=== PATIENT | male | born 1965 | race Caucasian/White ===

== ENCOUNTER 2016-12-06 13:16 | Outpatient (CLI) | payer BC ==
--- NOTE | 2016-12-06 15:10 | XRAY Report ---
THREE-VIEW LUMBAR SPINE: 12/06/2016 CLINICAL INDICATION: Back pain. FINDINGS: AP, lateral, coned-down views of the lumbar spine demonstrate mild degenerative disk and f acet disease. There is no evidence of compression fracture or subluxation. The bowel gas pattern is normal. IMPRESSION: MILD DEGENERATIVE CHANGES. JOB #: [id number] EXT JOB #:[id number]
== END 2016-12-06 13:17 | disposition home or self-care (01) ==
LOC: DI.S 13:16
PROVIDERS: ATTEND Physician Assistant
DX: M47.896 Other spondylosis, lumbar region (principal); M51.36 Other intervertebral disc degeneration, lumbar region
CPT/HCPCS: 72100

== ENCOUNTER 2017-09-15 12:46 | Outpatient (CLI) | payer OTHER | END 2017-09-15 12:47 | disposition home or self-care (01) | LOC: DI 12:46 | PROVIDERS: ATTEND Physician Assistant | DX: R00.2 Palpitations (principal); R07.9 Chest pain, unspecified; E78.5 Hyperlipidemia, unspecified | CPT/HCPCS: 93306 ==

== ENCOUNTER 2018-07-31 09:54 | Outpatient (CLI) | payer OTHER ==
[2018-07-31] MEDS ORDERED: IOVERSOL 320 100 ML VIAL IVP ONE ×2 (10:09→11:04)
[2018-07-31] MEDS ORDERED: IOVERSOL 320 50 ML VIAL ONE (10:09)
[2018-07-31] MEDS ORDERED: IOVERSOL 320 50 ML VIAL PO ONE (11:04)
--- NOTE | 2018-07-31 14:48 | CT Report ---
Reason: LEFT LOWER QUADRANT PAIN Procedure Date: 07/31/2018 Accession Number: [id number] / [id number] Procedure: CT - Abdomen/Pelvis W CPT Code: FULL RESULT: EXAM: CT ABDOMEN AND PELVIS EXAM DATE: 07/31/2018 11:07 AM. CLINICAL HISTORY: LEFT LOWER QUADRANT PAIN. COMPARISONS: None. TECHNIQUE: Routine helical CT imaging was performed through the abdomen and pelvis. IV contrast: 90 cc Optiray 320. Enteric contrast: No. Reconstructions: Coronal and sagittal. In accordance with CT protocol optimization, one or more of the following dose reduction techniques were utilized for this exam: automated exposure control, adjustment of mA and/or KV based on patient size, or use of iterative reconstructive technique. FINDINGS: Lung Bases: Unremarkable. Liver: Subcentimeter density too small to characterize. Gallbladder/Bile Ducts: Unremarkable. Spleen: Normal. Pancreas: Normal. Adrenal Glands: Normal. Kidneys: Small right renal cyst. Left kidney unremarkable. Peritoneal Cavity/Bowel: Diverticulosis No free fluid, free air or adenopathy. No masses or acute inflammatory process. The appendix is well visualized and normal. Pelvic Organs: Prostate calcification. The bladder and visualized pelvic organs are otherwise within normal limits. Vasculature: No aneurysms or other significant abnormality. Bones: No significant abnormality. Other: None. IMPRESSION: 1. Diverticulosis. 2. Normal appendix. 3. Small right renal cyst RADIA
== END 2018-07-31 09:55 | disposition home or self-care (01) ==
LOC: DI 09:54
PROVIDERS: ATTEND Nurse Practitioner Family
DX: K57.30 Diverticulosis of large intestine without perforation or abscess without bleeding (principal); N28.1 Cyst of kidney, acquired
CPT/HCPCS: 74177; Q9967

== ENCOUNTER 2019-08-24 14:49 | Outpatient (CLI) | payer OTHER ==
[2019-08-24] MEDS ORDERED: GADOBUTROL 7.5 MMOL/7.5 ML VIAL ONE (15:42)
[2019-08-24] MEDS ORDERED: GADOBUTROL 7.5 MMOL/7.5 ML VIAL IVP ONE (17:33)
--- NOTE | 2019-08-25 11:36 | MRI Report ---
PROCEDURE: Foot LT W/WO INDICATIONS: LOCALIZED SWELLING, MASS AND LUMP, LOWER LIMB, NETTE CONTRAST: IV CONTRAST: Gadavist ml: 7.5 TECHNIQUE: Noncontrast sagittal T1 spin echo and T2 fast spin echo with fat saturation, long-axis T1 spin echo a nd T2 fast spin echo with fat saturation; short-axis T1 spin echo, proton density fast spin echo, and T2 fast spin echo with fat saturation through the forefoot. Post-contrast short axis, long axis, an d sagittal T1 spin echo with fat saturation through the forefoot. COMPARISON: None. FINDINGS: Image quality: Excellent. Bones and joints: No suspicious osseous enhancement. No bone marrow contusions or metatarsal stress fractures. The sesamoid bones appear in expected positions, without internal edema. No metatarsoph alangeal joint degeneration. No intraosseous lesions. Soft tissues: Surface skin marker is placed over plantar aspect of medial forefoot at the level of f irst metatarsal shaft. At the site of the marker, there is a 11 x 10 x 22 mm T1 hypointense and heter ogeneously T2 hyperintense structure within the plantar right foot subcutaneous soft tissue. There is heterogeneous contrast enhancement within this lesion. No gross underlying plantar foot muscles and involvement is noted. The visualized plantar foot muscles demonstrate normal signal and bulk. Visual ized flexor and extensor tendons appear intact, without tenosynovitis. The distal insertions of the peroneus brevis and longus tendons appear intact. The principal Lisfranc ligament appears intact. S agittal images demonstrate no evidence for plantar plate tears. IMPRESSION: 1. 11 x 10 x 22 mm enhancing lesion involving the plantar soft tissue of medial forefoot at the level of first metatarsal shaft and is of indeterminate nature. Excision or biopsy of this nodule can be d one for more definitive diagnosis. 2. No marrow signal abnormality. No suspicious intraosseous lesion or abnormal intraosseous enhanceme nt. 3. No other enhancing soft tissue lesion. No underlying muscle or tendon involvement. Reviewed by: Hussein Bales MD on 08/25/2019 11:35 AM PDT Approved by: Hussein Bales MD on 08/25/2019 11:35 AM PDT Station ID: [id number]
--- NOTE | 2019-08-25 13:51 | MRI Report ---
PROCEDURE: Foot RT W/WO INDICATIONS: LOCALIZED SWELLING, MASS AND LUMP, LOWER LIMB, NETTE CONTRAST: IV CONTRAST: Gadavist ml: 7.5 TECHNIQUE: Noncontrast sagittal T1 spin echo and T2 fast spin echo with fat saturation, long-axis T1 spin echo a nd T2 fast spin echo with fat saturation; short-axis T1 spin echo, proton density fast spin echo, and T2 fast spin echo with fat saturation through the forefoot. Post-contrast short axis, long axis, an d sagittal T1 spin echo with fat saturation through the forefoot. COMPARISON: None. FINDINGS: Image quality: Excellent. Bones and joints: No suspicious osseous enhancement. No bone marrow contusions or metatarsal stress fractures. The sesamoid bones appear in expected positions, without internal edema. 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 Small subcortical cyst formation in medial first metatarsal he ad is also noted. No suspicious intraosseous lesions. Soft tissues: 11 x 19 x 10 mm heterogeneously T2 hyperintense and T1 hypointense oval lesion involvin g soft tissue along the plantar aspect of first metatarsal base is seen. There is heterogeneous contr ast enhancement within this structure. A second similarly enhancing oval lesion is also seen over malik ntar aspect of second metatarsal base and measures up to 13 x 17 x 10 mm in size. No underlying plant ar forefoot muscle involvement is noted. The visualized plantar foot muscles demonstrate normal signa l and bulk. Visualized flexor and extensor tendons appear intact, without tenosynovitis. The distal insertions of the peroneus brevis and longus tendons appear intact. The principal Lisfranc ligament appears intact. No bursal fluid collections. Sagittal images demonstrate no evidence for plantar pl ate tears. IMPRESSION: 1. Heterogeneously enhancing 11 x 19 x 10 mm T2 hyperintense and T1 hypointense lesion involving soft tissue along plantar aspect of first metatarsal base. A second similar enhancing lesion is noted in soft tissue over plantar aspect of second metatarsal base and measures 13 x 17 x 10 mm in size. These lesions are of indeterminant etiology. Consider biopsy or excision of this nodule for more definitiv e diagnosis. 2. No marrow signal abnormality. No abnormal intraosseous enhancement. Mild first MTP joint osteoarth ritis. 3. No underlying right frontal muscle or tendon involvement. Reviewed by: Hussein Bales MD on 08/25/2019 1:50 PM PDT Approved by: Hussein Bales MD on 08/25/2019 1:50 PM PDT Station ID: [id number]
== END 2019-08-24 14:50 | disposition home or self-care (01) ==
LOC: DI 14:49
PROVIDERS: ATTEND Nurse Practitioner Family
DX: R93.6 Abnormal findings on diagnostic imaging of limbs (principal)
CPT/HCPCS: 73720; A9585

== ENCOUNTER 2019-11-18 12:02 | Outpatient (CLI) | payer OTHER | END 2019-11-18 12:03 | disposition home or self-care (01) | LOC: COV 12:02 | PROVIDERS: ATTEND Family Medicine | DX: Z20.828 Contact with and (suspected) exposure to other viral communicable diseases (principal) ==